=== PATIENT | female | born 1950 | race Caucasian/White ===

== ENCOUNTER 2016-07-27 08:22 | Emergency (ER) | payer MEDICARE, OTHER ==
[2016-07-27 10:49] LABS: BASOPHIL 0.3 % (0-2); HCT 46.3 % (37.0-47.0); LYMPHOCYTE 33.4 % (15-48); MCH 33.5 pg (25.0-31.0); MCHC 34.6 g/dL (32.0-36.0); MCV 96.9 fL (78.0-100.0); MONOCYTE 7.4 % (0-12); MPV 8.9 fL (6.0-9.5); NEUTROPHIL 57.9 % (41-80); PLT 341 K/uL (150-400); RBC 4.78 M/uL (4.20-5.40); WBC 7.2 K/uL (4.0-10.5)
[2016-07-27 10:57] LABS: BILIRUBIN NEGATIVE (NEGATIVE); BLOOD NEGATIVE Ery/uL (NEGATIVE); CLARITY CLEAR (CLEAR); COLOR YELLOW (YELLOW); GLUCOSE (U) NORMAL (NORMAL); KETONE (U) NEGATIVE (NEGATIVE); LEUKOCYTES NEGATIVE Leu/uL (NEGATIVE); NITRITE NEGATIVE (NEGATIVE); PROTEIN NEGATIVE (NEGATIVE); UROBILINOGEN 0.2 mg/dL (0.2-1.0)
[2016-07-27 11:04] LABS: CREATININE 0.7 mg/dL (0.5-1.0); POTASSIUM 3.7 mmol/L (3.5-5.1)
== END 2016-07-27 11:56 | disposition home or self-care (01) ==
LOC: FER 08:22
PROVIDERS: Nurse Practitioner Family
DX: M54.42 Lumbago with sciatica, left side (principal); I10 Essential (primary) hypertension; F32.9 Major depressive disorder, single episode, unspecified; E07.9 Disorder of thyroid, unspecified; F17.210 Nicotine dependence, cigarettes, uncomplicated; Z87.81 Personal history of (healed) traumatic fracture; Z88.1 Allergy status to other antibiotic agents; Z79.899 Other long term (current) drug therapy
CPT/HCPCS: 36415; 72110; 80048; 81003; 85025; J1100; J1885